=== PATIENT | female | born 1985 | race American Indian/Alaskan Native ===

== ENCOUNTER 2021-04-29 19:47 | Inpatient (IN) | payer OTHER ==
--- NOTE | 2021-04-29 21:04 | Event Note ---
ED Screening Note Date of service: 04/29/21 Time: 21:02 ED Screening Note: 35-year-old female patient with history of multiple C-sections presents to the emergency department with complaints of epigastric abdominal pain with associated nausea and vomiting starting 3 days ago. Patient has experienced 1 episode of nonbloody emesis in the last 24 hours. Last bowel movement was yesterday. No known sick contacts. No family history of gallbladder disease. Endorses occasional alcohol use. Denies fever, chills, diarrhea, constipation, rectal bleeding, urinary symptoms. General: Awake, appropriately interactive. Appears uncomfortable. Neck: Supple. Full range of motion intact. Cardiovascular: Normal peripheral perfusion. Pulmonary: No respiratory distress. Patient is speaking normally without use of accessory muscles. Abdomen: Soft, nondistended. Diffuse upper abdominal tenderness most pronounced along the epigastric area without guarding, rigidity, or rebound. Skin: No apparent rashes or lesions. Neurological: No facial asymmetry. Speech is clear. Follows commands. Patient is alert and oriented. Musculoskeletal: Moves all four extremities spontaneously with normal range of motion. Psych: Cooperative. Appropriate mood and affect. I have greeted and performed a focused rapid initial assessment of this patient. A comprehensive ED assessment and evaluation of the patient, analysis of all test results, and completion of the medical decision-making process will be conducted by additional ED providers. This initial assessment/diagnostic orders/clinical plan/treatment(s) is/are subject to change based on patients health status, clinical progression and re-assessment. Further treatment and workup at subsequent clinical provider's discretion. Patient/guardian urged not to elope from the ED as their condition may be serious if not clinically assessed and managed.
[2021-04-29 21:18] LABS: Basophils # (Auto) 0.1 K/mm3 (0.0-0.1); Basophils % (Auto) 0.8 % (0.0-1.8); Eosinophils % (Auto) 0.1 % (0.0-4.3); Hematocrit 40.8 % (30.3-42.9); Hemoglobin 13.6 gm/dl (10.1-14.3); Lymphocytes # (Auto) 1.8 K/mm3 (1.2-5.4); Lymphocytes % (Auto) 16.6 % (13.4-35.0); Mean Corpuscular HGB Conc 33 % (30-34); Mean Corpuscular Volume 85 fl (79-97); Monocytes # (Auto) 0.8 K/mm3 (0.0-0.8); Monocytes % (Auto) 7.8 % (0.0-7.3); Platelet Count 389 K/mm3 (140-440)
[2021-04-29 21:24] LABS: Bacteria,Urine 1+ /HPF (Negative); Bilirubin,Urine NEG (Negative); Blood,Urine NEG (Negative); Color,Urine Yellow (Yellow); Mucus,Urine 3+ /HPF
[2021-04-29 21:41] LABS: Alanine Aminotransferase 8 units/L (7-56); Albumin 4.6 g/dL (3.9-5); BUN/Creatinine Ratio 23; Blood Urea Nitrogen 18 mg/dL (7-17); Calcium 9.6 mg/dL (8.4-10.2); Hemolysis Index 9
[2021-04-29] MEDS ORDERED: ONDANSETRON 4 MG ODT TAB PO ONE (23:59)
[2021-04-29] MEDS ORDERED: MORPHINE 4 MG/1 ML INJ IV ONE (23:59)
[2021-04-29] MEDS ORDERED: SODIUM CHLORIDE 0.9% 1000 ML 1,000 ML IV ONE (23:59)
[2021-04-30] MEDS ORDERED: FAMOTIDINE 20 MG/2 ML INJ IV ONE (00:10)
--- NOTE | 2021-04-30 00:14 | Emergency Department Report ---
<NEMESIO SONI - Last Filed: 04/30/21 01:27> ED Abdominal Pain HPI - General Chief Complaint: Abdominal Pain Stated Complaint: STOMACH PAIN;VOMITING Time Seen by Provider: 04/29/21 21:34 Source: patient Mode of arrival: Ambulatory Limitations: No Limitations - History of Present Illness Initial Comments: 35-year-old -[place] female patient resents with complaints of nausea, vomiting, and upper abdominal pain x3 days. She denies any past medical history. Past surgical history includes 3 C-sections. She denies gerardo temesis/coffee-ground emesis, fever/chills/sweats, alcohol abuse, chest pain, shortness of breath, or cough. Patient rates her current pain as a 10/10 in severity and states it comes and goes. Pain worsens with oral intake. Vomiting only occurs with food and fluids. -: Sudden - Related Data Home Medications Medication Instructions Recorded Confirmed Last Taken Pnv,Calcium 72/Iron/Folic Acid 1 tab PO DAILY 12/14/14 12/14/14 12/13/14 [Pnv Plus Multivit Tab] Previous Rx's Medication Instructions Recorded Last Taken Type Docusate Sodium [Colace] 100 mg PO BID PRN #60 capsule 12/15/14 Unknown Rx Ibuprofen [Motrin] 800 mg PO Q8H PRN #60 tablet 12/15/14 Unknown Rx oxyCODONE /ACETAMINOPHEN [Percocet 1 tab PO Q6HR PRN #45 tablet 12/15/14 Unknown Rx 5/325] Dicyclomine [Bentyl] 20 mg PO QID PRN #40 tablet 04/30/21 Unknown Rx Famotidine [Pepcid] 20 mg PO BID 10 Days #20 tablet 04/30/21 Unknown Rx Ondansetron [Zofran Odt] 4 mg PO Q8HR PRN #30 tab.rapdis 04/30/21 Unknown Rx Allergies Allergy/AdvReac Type Severity Reaction Status Date / Time No Known Allergies Allergy Verified 08/09/14 09:14 ED Review of Systems Constitutional: denies: chills, fever, malaise ENT: denies: throat pain Respiratory: denies: cough, shortness of breath Cardiovascular: denies: chest pain Gastrointestinal: abdominal pain, nausea, vomiting. denies: diarrhea, constipation, hematemesis, melena, hematochezia Genitourinary: denies: urgency, dysuria, frequency, hematuria Musculoskeletal: denies: back pain Skin: denies: change in color Neurological: denies: headache Hematological/Lymphatic: denies: swollen glands ED Past Medical Hx - Past Medical History Previous Medical History?: No Hx Hypertension: No Hx Congestive Heart Failure: No Hx Diabetes: No Hx Deep Vein Thrombosis: No Hx Renal Disease: No Hx Sickle Cell Disease: No Hx Seizures: No Hx Asthma: No Hx COPD: No Hx HIV: No - Surgical History Past Surgical History?: Yes Additional Surgical History: , Tubes in ears - Social History Smoking Status: Never Smoker - Medications Home Medications: Home Medications Medication Instructions Recorded Confirmed Last Taken Type Pnv,Calcium 72/Iron/Folic Acid 1 tab PO DAILY 12/14/14 12/14/14 12/13/14 History [Pnv Plus Multivit Tab] Docusate Sodium [Colace] 100 mg PO BID PRN #60 capsule 12/15/14 Unknown Rx Ibuprofen [Motrin] 800 mg PO Q8H PRN #60 tablet 12/15/14 Unknown Rx oxyCODONE /ACETAMINOPHEN [Percocet 1 tab PO Q6HR PRN #45 tablet 12/15/14 Unknown Rx 5/325] Dicyclomine [Bentyl] 20 mg PO QID PRN #40 tablet 04/30/21 Unknown Rx Famotidine [Pepcid] 20 mg PO BID 10 Days #20 tablet 04/30/21 Unknown Rx Ondansetron [Zofran Odt] 4 mg PO Q8HR PRN #30 tab.rapdis 04/30/21 Unknown Rx ED Physical Exam - General Limitations: No Limitations General appearance: alert, in no apparent distress - Head Head exam: Present: atraumatic, normocephalic - Eye Eye exam: Present: normal appearance - Neck Neck exam: Present: normal inspection - Respiratory Respiratory exam: Present: normal lung sounds bilaterally, respiratory distress - Cardiovascular Cardiovascular Exam: Present: regular rate, normal rhythm - GI/Abdominal GI/Abdominal exam: Present: soft, tenderness (Epigastric/right upper quadrant), normal bowel sounds. Absent: distended, rigid - Expanded GI/Abdominal Exam Expanded GI/Abdominal exam: Present: Chavarria's sign - Neurological Exam Neurological exam: Present: alert, oriented X3 - Psychiatric Psychiatric exam: Present: normal affect, normal mood - Skin Skin exam: Present: warm, dry, intact, normal color. Absent: rash ED Medical Decision Making - Lab Data Result diagrams: 04/29/21 21:07 04/29/21 21:07 Lab Results 04/29/21 04/29/21 04/29/21 Range/Units 21:07 21:07 21:07 WBC 10.9 (4.5-11.0) K/mm3 RBC 4.80 (3.65-5.03) M/mm3 Hgb 13.6 (10.1-14.3) gm/dl Hct 40.8 (30.3-42.9) % MCV 85 (79-97) fl MCH 28 (28-32) pg MCHC 33 (30-34) % RDW 13.0 L (13.2-15.2) % Plt Count 389 (140-440) K/mm3 Lymph % (Auto) 16.6 (13.4-35.0) % [place] % (Auto) 7.8 H (0.0-7.3) % Eos % (Auto) 0.1 (0.0-4.3) % Baso % (Auto) 0.8 (0.0-1.8) % Lymph # (Auto) 1.8 (1.2-5.4) K/mm3 [place] # (Auto) 0.8 (0.0-0.8) K/mm3 Eos # (Auto) 0.0 (0.0-0.4) K/mm3 Baso # (Auto) 0.1 (0.0-0.1) K/mm3 Seg Neutrophils % 74.7 H (40.0-70.0) % Seg Neutrophils # 8.1 H (1.8-7.7) K/mm3 Sodium 136 L (137-145) mmol/L Potassium 3.7 (3.6-5.0) mmol/L Chloride 94.0 L (98-107) mmol/L Carbon Dioxide 29 (22-30) mmol/L Anion Gap 17 mmol/L BUN 18 H (7-17) mg/dL Creatinine 0.8 (0.6-1.2) mg/dL Estimated GFR > 60 ml/min BUN/Creatinine Ratio 23 % Glucose 125 H (65-100) mg/dL Calcium 9.6 (8.4-10.2) mg/dL Magnesium 1.90 (1.7-2.3) mg/dL Total Bilirubin 0.40 (0.1-1.2) mg/dL AST 10 (5-40) units/L ALT 8 (7-56) units/L Alkaline Phosphatase 71 (35-129) units/L Total Protein 7.6 (6.3-8.2) g/dL Albumin 4.6 (3.9-5) g/dL Albumin/Globulin Ratio 1.5 % Lipase 15 (13-60) units/L HCG, Qual Negative (Negative) Urine Color (Yellow) Urine Turbidity (Clear) Urine pH (5.0-7.0) Ur Specific [place] (1.003-1.030) Urine Protein (Negative) mg/dL Urine Glucose (UA) (Negative) mg/dL Urine Ketones (Negative) mg/dL Urine Blood (Negative) Urine Nitrite (Negative) Urine Bilirubin (Negative) Urine Urobilinogen (<2.0) mg/dL Ur Leukocyte Esterase (Negative) Urine WBC (Auto) (0.0-6.0) /HPF Urine RBC (Auto) (0.0-6.0) /HPF U Epithel Cells (Auto) (0-13.0) /HPF Urine Bacteria (Auto) (Negative) /HPF Urine Mucus /HPF 04/29/21 Range/Units Unknown WBC (4.5-11.0) K/mm3 RBC (3.65-5.03) M/mm3 Hgb (10.1-14.3) gm/dl Hct (30.3-42.9) % MCV (79-97) fl MCH (28-32) pg MCHC (30-34) % RDW (13.2-15.2) % Plt Count (140-440) K/mm3 Lymph % (Auto) (13.4-35.0) % [place] % (Auto) (0.0-7.3) % Eos % (Auto) (0.0-4.3) % Baso % (Auto) (0.0-1.8) % Lymph # (Auto) (1.2-5.4) K/mm3 [place] # (Auto) (0.0-0.8) K/mm3 Eos # (Auto) (0.0-0.4) K/mm3 Baso # (Auto) (0.0-0.1) K/mm3 Seg Neutrophils % (40.0-70.0) % Seg Neutrophils # (1.8-7.7) K/mm3 Sodium (137-145) mmol/L Potassium (3.6-5.0) mmol/L Chloride (98-107) mmol/L Carbon Dioxide (22-30) mmol/L Anion Gap mmol/L BUN (7-17) mg/dL Creatinine (0.6-1.2) mg/dL Estimated GFR ml/min BUN/Creatinine Ratio % Glucose (65-100) mg/dL Calcium (8.4-10.2) mg/dL Magnesium (1.7-2.3) mg/dL Total Bilirubin (0.1-1.2) mg/dL AST (5-40) units/L ALT (7-56) units/L Alkaline Phosphatase (35-129) units/L Total Protein (6.3-8.2) g/dL Albumin (3.9-5) g/dL Albumin/Globulin Ratio % Lipase (13-60) units/L HCG, Qual (Negative) Urine Color Yellow (Yellow) Urine Turbidity Clear (Clear) Urine pH 5.0 (5.0-7.0) Ur Specific [place] 1.031 H (1.003-1.030) Urine Protein 100 mg/dl (Negative) mg/dL Urine Glucose (UA) Neg (Negative) mg/dL Urine Ketones 80 (Negative) mg/dL Urine Blood Neg (Negative) Urine Nitrite Neg (Negative) Urine Bilirubin Neg (Negative) Urine Urobilinogen 2.0 (<2.0) mg/dL Ur Leukocyte Esterase Neg (Negative) Urine WBC (Auto) 2.0 (0.0-6.0) /HPF Urine RBC (Auto) 5.0 (0.0-6.0) /HPF U Epithel Cells (Auto) 5.0 (0-13.0) /HPF Urine Bacteria (Auto) 1+ (Negative) /HPF Urine Mucus 3+ /HPF - Radiology Data Radiology results: report reviewed ULTRASOUND ABDOMEN, LIMITED (RIGHT UPPER QUADRANT) INDICATION: acute pain. COMPARISON: None available. FINDINGS: Pancreas: Visualized portion shows no significant abnormality. Liver: Increased echogenicity of the liver Gallbladder: Normal. Bile ducts: Normal. Common Bile Duct measures 3.9 mm. Free fluid: None. Additional Findings: No evidence of ventral wall hernia. Multiple fluid-filled loops of bowel are noted IMPRESSION: 1. Hepatic steatosis 2. Questionable distention of the gastrointestinal tract, recommend KUB for further evaluation - Medical Decision Making 35-year-old -[place] female patient resents with complaints of nausea, vomiting, and upper abdominal pain x3 days. She denies any past medical history. Past surgical history includes 3 C-sections. She denies hematemesis/coffee-ground emesis, fever/chills/sweats, alcohol abuse, chest pain, shortness of breath, or cough. Patient rates her current pain as a 10/10 in severity and states it comes and goes. Pain worsens with oral intake. Vomiting only occurs with food and fluids. ED Disposition Clinical Impression: Nausea and vomiting in adult patient, Small bowel obstruction Abdominal pain Qualifiers: Abdominal location: generalized Qualified Code(s): R10.84 - Generalized abdominal pain Disposition: OP ADMIT IP TO THIS HOSP Condition: Stable Instructions: Abdominal Pain (ED) Prescriptions: Dicyclomine [Bentyl] 20 mg PO QID PRN #40 tablet PRN Reason: abdominal pain/cramping Famotidine [Pepcid] 20 mg PO BID 10 Days #20 tablet Ondansetron [Zofran Odt] 4 mg PO Q8HR PRN #30 tab.rapdis PRN Reason: Nausea Referrals: [facility] [Provider Group] - 2-3 Days Forms: Work/School Release Form(ED) Print Language: YORUBA <ALEX DALY - Last Filed: 04/30/21 03:06> ED Review of Systems ROS: Stated complaint: STOMACH PAIN;VOMITING Other details as noted in HPI ED Course Vital Signs 04/29/21 04/29/21 20:01 20:38 Temperature 99.4 F Pulse Rate 95 H Respiratory 18 Rate Blood Pressure 152/134 Blood Pressure 125/84 [Right] O2 Sat by Pulse 96 Oximetry - Reevaluation(s) Reevaluation #1: 04/30/21 02:47 I paged and discussed the patient's case with the General Surgeon concrete worker Dr. Palomares who advised that an NG tube be placed on the patient to start decompression, the patient be kept n.p.o. and also given normal saline IV fluids and pain medication as needed. Dr. Palomares also advised that the patient be admitted to the hospital by the hospitalist physician on-call and that she shall consult on the patient this morning. 04/30/21 02:59 ED Medical Decision Making - Lab Data Result diagrams: 04/29/21 21:07 04/29/21 21:07 - Radiology Data [facility] [address] [place] [address] Cat Scan Report Signed Patient: PAYTON GALAVIZ MR#: [id number] : 1985 Acct:[id number] Age/Sex: 35 / F ADM Date: 04/29/21 Loc: ED Attending Dr: Ordering Physician: NEMESIO SONI Date of Service: 04/30/21 Procedure(s): CT abdomen pelvis w con Accession Number(s): [id number] cc: NEMESIO SONI CT ABDOMEN AND PELVIS WITH CONTRAST INDICATION / CLINICAL INFORMATION: MAIN. TECHNIQUE: Axial CT images were obtained through the abdomen and pelvis after small bowel obstruction 100 cc Omnipaque 300 milligrams percent IV contrast. All CT scans at this location are performed using CT dose reduction for [employer] by means of automated exposure control. COMPARISON: None available. FINDINGS: LOWER CHEST: No significant abnormality. LIVER: No significant abnormality. GALLBLADDER: No significant abnormality. BILE DUCTS: No significant abnormality. PANCREAS: No significant abnormality. SPLEEN: No significant abnormality. ADRENALS: No significant abnormality. RIGHT KIDNEY and URETER: No significant abnormality. LEFT KIDNEY and URETER: No significant abnormality. STOMACH and SMALL BOWEL: Multiple loops of dilated small bowel predominantly proximal and mid portions COLON: No significant abnormality. APPENDIX: No significant abnormality. PERITONEUM: Significant amount of free fluid dependent portion of the pelvis. No free air. No fluid collection. LYMPH NODES: No significant adenopathy. AORTA and ARTERIES: No significant abnormality. IVC and VEINS: No significant abnormality. URINARY BLADDER: No significant abnormality. REPRODUCTIVE ORGANS: No significant abnormality. ADDITIONAL FINDINGS: None. SKELETAL SYSTEM: No significant abnormality. IMPRESSION: 1. Abnormal intestinal gas pattern consistent with a small bowel obstruction 2. Significant amount of free fluid dependent portion of the pelvis Signer Name: Mariano Benson MD Signed: 04/30/2021 1:58 AM Workstation Name: [id number] Transcribed By: FAYE Dictated By: Mariano Benson MD Electronically Authenticated By: Mariano Benson MD Signed Date/Time: 04/30/21157 DD/ 4 TD/TT: - Medical Decision Making I seen care of the patient from Ms. Nemesio Soni PA-C at shift change at 0200 hrs. please review the HPI, ROS and physical exams for more details of the patient's complaint. All lab test results were reviewed and are all nonactionable. Gallbladder ultrasound showed no acute abnormality except hepatic steatosis. Abdomen pelvis CT scan with contrast showed abnormal intestinal gas pattern consistent with a small bowel obstruction. It also showed significant amount of free fluid dependent portion of the pelvis. These findings were discussed with the general surgeon on-call Dr. Palomares who advised that the patient be kept n.p.o., and that an NG tube be placed and that the patient be treated for pain and given normal saline IV fluids and that the hospitalist physician on-call admit the patient to the hospital and she shall consult on the patient in the morning. An NG tube was therefore placed on the patient and confirmed the placement correctly with a KUB x-ray. I therefore paged and discussed this findings also with the hospitalist physician Dr. Dominguez who admitted the patient to the hospital. - Differential Diagnosis Dehydration; SBO; Appendicitis; Colitis; Gastroenteritis; GERD; UTI Critical Care Time: Yes Critical care time in (mins) excluding proc time.: 35 Critical care attestation.: If time is entered above; I have spent that time in minutes in the direct care of this critically ill patient, excluding procedure time. Time spent on patient education, documentation, Lab test results and imaging report review and physician consults Critical Care Time: If time is entered above; I have spent that time in minutes in the direct care of this critically ill patient, excluding procedure time. Time spent on patient education, documentation, Lab test results and imaging report review and physician consults ED Disposition Is pt being admited?: Yes Does the pt Need Aspirin: No Time of Disposition: 02:46
--- NOTE | 2021-04-30 00:50 | Ultrasound Report ---
ULTRASOUND ABDOMEN, LIMITED (RIGHT UPPER QUADRANT) INDICATION: acute pain. COMPARISON: None available. FINDINGS: Pancreas: Visualized portion shows no significant abnormality. Liver: Increased echogenicity of the liver Gallbladder: Normal. Bile ducts: Normal. Common Bile Duct measures 3.9 mm. Free fluid: None. Additional Findings: No evidence of ventral wall hernia. Multiple fluid-filled loops of bowel are not ed IMPRESSION: 1. Hepatic steatosis 2. Questionable distention of the gastrointestinal tract, recommend KUB for further evaluation Signer Name: Mariano Benson MD Signed: 04/30/2021 12:46 AM Workstation Name: [id number]
--- NOTE | 2021-04-30 02:02 | Cat Scan Report ---
CT ABDOMEN AND PELVIS WITH CONTRAST INDICATION / CLINICAL INFORMATION: MAIN. TECHNIQUE: Axial CT images were obtained through the abdomen and pelvis after small bowel obstruction 100 cc Omn ipaque 300 milligrams percent IV contrast. All CT scans at this location are performed using CT dose reduction for [employer] by means of automated exposure control. COMPARISON: None available. FINDINGS: LOWER CHEST: No significant abnormality. LIVER: No significant abnormality. GALLBLADDER: No significant abnormality. BILE DUCTS: No significant abnormality. PANCREAS: No significant abnormality. SPLEEN: No significant abnormality. ADRENALS: No significant abnormality. RIGHT KIDNEY and URETER: No significant abnormality. LEFT KIDNEY and URETER: No significant abnormality. STOMACH and SMALL BOWEL: Multiple loops of dilated small bowel predominantly proximal and mid portion s COLON: No significant abnormality. APPENDIX: No significant abnormality. PERITONEUM: Significant amount of free fluid dependent portion of the pelvis. No free air. No fluid c ollection. LYMPH NODES: No significant adenopathy. AORTA and ARTERIES: No significant abnormality. IVC and VEINS: No significant abnormality. URINARY BLADDER: No significant abnormality. REPRODUCTIVE ORGANS: No significant abnormality. ADDITIONAL FINDINGS: None. SKELETAL SYSTEM: No significant abnormality. IMPRESSION: 1. Abnormal intestinal gas pattern consistent with a small bowel obstruction 2. Significant amount of free fluid dependent portion of the pelvis Signer Name: Mariano Benson MD Signed: 04/30/2021 1:58 AM Workstation Name: [id number]
[2021-04-30] MEDS ORDERED: ONDANSETRON 4 MG/2 ML INJ IV PRN ×2 (03:07→03:46)
[2021-04-30] MEDS ORDERED: MORPHINE 2 MG/1 ML INJ IV PRN (03:07)
[2021-04-30] MEDS ORDERED: ACETAMINOPHEN 325 MG TAB PO PRN ×2 (03:07→03:46)
[2021-04-30] MEDS ORDERED: SODIUM CHLORIDE 0.9% 1000 ML 1,000 ML IV SCH (03:15)
[2021-04-30] MEDS ORDERED: ALBUTEROL 2.5 MG/3 ML NEBU IH PRN (03:46)
[2021-04-30] MEDS ORDERED: hydrALAZINE 20 MG/1 ML INJ IV PRN (03:47)
--- NOTE | 2021-04-30 03:51 | XRay Report ---
ABDOMEN 1 VIEW(S) INDICATION: NG tube placement COMPARISON: None available. FINDINGS: Nasogastric tube has tip in stomach Bowel gas pattern: Within normal limits. No dilated loops of large or small bowel. Free air: None. Calcified gallstones: None seen. Calcified urinary tract calculi: None seen. Additional Findings: None. Skeletal structures: No acute abnormality. IMPRESSION: 1. No acute findings. Signer Name: Mariano Benson MD Signed: 04/30/2021 3:47 AM Workstation Name: [id number]
--- NOTE | 2021-04-30 03:53 | History and Physical Report ---
History of Present Illness Date of examination: 04/30/21 Date of admission: 04/30/21 03:08 Chief complaint: Abdominal pain Nausea vomiting History of present illness: 35-year-old -[place] female with no significant past medical history was brought to the hospital because of upper abdominal pain acid with nausea vomiting for the last 3 days. past surgical history includes 3 C-sections. She denies hematemesis/coffee-ground emesis, fever/chills/sweats, alcohol abuse, chest pain, shortness of breath, or cough. Patient rates her current pain as a 10/10 in severity and states it comes and goes. Pain worsens with oral intake. Vomiting only occurs with food and fluids. In the emergency room patient had a CT scan of the abdomen and pelvis showed small bowel obstruction Past History Past Medical History: other () Past Surgical History: (Tubes in the ears) Medications and Allergies Allergies Allergy/AdvReac Type Severity Reaction Status Date / Time No Known Allergies Allergy Verified 08/09/14 09:14 Home Medications Medication Instructions Recorded Confirmed Last Taken Type Pnv,Calcium 72/Iron/Folic Acid 1 tab PO DAILY 12/14/14 12/14/14 12/13/14 History [Pnv Plus Multivit Tab] Docusate Sodium [Colace] 100 mg PO BID PRN #60 capsule 12/15/14 Unknown Rx Ibuprofen [Motrin] 800 mg PO Q8H PRN #60 tablet 12/15/14 Unknown Rx oxyCODONE /ACETAMINOPHEN [Percocet 1 tab PO Q6HR PRN #45 tablet 12/15/14 Unknown Rx 5/325] Dicyclomine [Bentyl] 20 mg PO QID PRN #40 tablet 04/30/21 Unknown Rx Famotidine [Pepcid] 20 mg PO BID 10 Days #20 tablet 04/30/21 Unknown Rx Ondansetron [Zofran Odt] 4 mg PO Q8HR PRN #30 tab.rapdis 04/30/21 Unknown Rx Active Meds: Active Medications Acetaminophen (Acetaminophen 325 Mg Tab) 650 mg PO Q4H PRN PRN Reason: Pain MILD(1-3)/Fever >100.5/LUCERO Acetaminophen (Acetaminophen 325 Mg Tab) 650 mg PO Q4H PRN PRN Reason: Pain MILD(1-3)/Fever >100.5/LUCERO Albuterol (Albuterol 2.5 Mg/3 Ml Nebu) 2.5 mg IH Q4HRT PRN PRN Reason: Shortness Of Breath Famotidine (Famotidine 20 Mg/2 Ml Inj) 20 mg IV BID PATO Heparin Sodium (Porcine) (Heparin 5,000 Unit/1 Ml Vial) 5,000 unit SUB-Q Q8HR PATO Hydralazine HCl (Hydralazine 20 Mg/1 Ml Inj) 10 mg IV Q6H PRN PRN Reason: htn Sodium Chloride (Nacl 0.9% 1000 Ml) 1,000 mls @ 125 mls/hr IV DIRECT PATO Dextrose/Sodium Chloride (D5/0.45ns) 1,000 mls @ 100 mls/hr IV DIRECT PATO Morphine Sulfate (Morphine 2 Mg/1 Ml Inj) 4 mg IV Q4H PRN PRN Reason: Pain, Moderate (4-6) Morphine Sulfate (Morphine 2 Mg/1 Ml Inj) 2 mg IV Q4H PRN PRN Reason: Pain, Moderate (4-6) Ondansetron HCl (Ondansetron 4 Mg/2 Ml Inj) 4 mg IV Q8H PRN PRN Reason: Nausea And Vomiting Ondansetron HCl (Ondansetron 4 Mg/2 Ml Inj) 4 mg IV Q8H PRN PRN Reason: Nausea And Vomiting Sodium Chloride (Sodium Chloride 0.9% 10 Ml Flush Syringe) 10 ml IV BID PATO Sodium Chloride (Sodium Chloride 0.9% 10 Ml Flush Syringe) 10 ml IV PRN PRN PRN Reason: LINE FLUSH Sodium Chloride (Sodium Chloride 0.9% 10 Ml Flush Syringe) 10 ml IV BID PATO Sodium Chloride (Sodium Chloride 0.9% 10 Ml Flush Syringe) 10 ml IV PRN PRN PRN Reason: LINE FLUSH Review of Systems Gastrointestinal: abdominal pain, nausea, vomiting Exam - Constitutional Vitals: Temp Pulse Resp BP Pulse Ox 99.4 F 95 H 18 125/84 96 04/29/21 20:01 04/29/21 20:01 04/29/21 20:01 04/29/21 20:38 04/29/21 20:01 General appearance: Present: no acute distress, well-nourished - EENT Eyes: Present: PERRL ENT: hearing intact, clear oral mucosa - Neck Neck: Present: supple, normal ROM - Respiratory Respiratory effort: normal Respiratory: bilateral: CTA - Cardiovascular Heart Sounds: Present: S1 & S2. Absent: rub, click - Extremities Extremities: pulses symmetrical, No edema Peripheral Pulses: within normal limits - Abdominal General gastrointestinal: Present: soft, tender, non-distended, normal bowel sounds, other (Tenderness in the epigastrium and right upper quadrant) Female genitourinary: Present: normal - Integumentary Integumentary: Present: clear, warm, dry - Musculoskeletal Musculoskeletal: gait normal, strength equal bilaterally - Psychiatric Psychiatric: appropriate mood/affect, intact judgment & insight - Neurologic Neurologic: CNII-XII intact, moves all extremities Results - Labs CBC & Chem 7: 04/29/21 21:07 04/29/21 21: Labs: Laboratory Last Values WBC 10.9 K/mm3 (4.5-11.0) 04/29/21 21: RBC 4.80 M/mm3 (3.65-5.03) 04/29/21 21: Hgb 13.6 gm/dl (10.1-14.3) 04/29/21 21: Hct 40.8 % (30.3-42.9) 04/29/21 21:07 MCV 85 fl (79-97) 04/29/21 21: MCH 28 pg (28-32) 04/29/21 21:07 MCHC 33 % (30-34) 04/29/21 21:07 RDW 13.0 % (13.2-15.2) L 04/29/21 21: Plt Count 389 K/mm3 (140-440) 04/29/21 21:07 Lymph % (Auto) 16.6 % (13.4-35.0) 04/29/21 21:07 [place] % (Auto) 7.8 % (0.0-7.3) H 04/29/21 21:07 Eos % (Auto) 0.1 % (0.0-4.3) 04/29/21 21:07 Baso % (Auto) 0.8 % (0.0-1.8) 04/29/21 21: Lymph # (Auto) 1.8 K/mm3 (1.2-5.4) 04/29/21 21:07 [place] # (Auto) 0.8 K/mm3 (0.0-0.8) 04/29/21 21:07 Eos # (Auto) 0.0 K/mm3 (0.0-0.4) 04/29/21 21:07 Baso # (Auto) 0.1 K/mm3 (0.0-0.1) 04/29/21 21:07 Seg Neutrophils % 74.7 % (40.0-70.0) H 04/29/21 21:07 Seg Neutrophils # 8.1 K/mm3 (1.8-7.7) H 04/29/21 21:07 Sodium 136 mmol/L (137-145) L 04/29/21 21:07 Potassium 3.7 mmol/L (3.6-5.0) 04/29/21 21:07 Chloride 94.0 mmol/L (98-107) L 04/29/21 21:07 Carbon Dioxide 29 mmol/L (22-30) 04/29/21 21:07 Anion Gap 17 mmol/L 04/29/21 21:07 BUN 18 mg/dL (7-17) H 04/29/21 21:07 Creatinine 0.8 mg/dL (0.6-1.2) 04/29/21 21:07 Estimated GFR > 60 ml/min 04/29/21 21:07 BUN/Creatinine Ratio 23 % 04/29/21 21:07 Glucose 125 mg/dL (65-100) H 04/29/21 21:07 Calcium 9.6 mg/dL (8.4-10.2) 04/29/21 21:07 Magnesium 1.90 mg/dL (1.7-2.3) 04/29/21 21:07 Total Bilirubin 0.40 mg/dL (0.1-1.2) 04/29/21 21:07 AST 10 units/L (5-40) 04/29/21 21:07 ALT 8 units/L (7-56) 04/29/21 21:07 Alkaline Phosphatase 71 units/L (35-129) 04/29/21 21:07 Total Protein 7.6 g/dL (6.3-8.2) 04/29/21 21:07 Albumin 4.6 g/dL (3.9-5) 04/29/21 21:07 Albumin/Globulin Ratio 1.5 % 04/29/21 21:07 Lipase 15 units/L (13-60) 04/29/21 21:07 HCG, Qual Negative (Negative) 04/29/21 21:07 Urine Color Yellow (Yellow) 04/29/21 Unknown Urine Turbidity Clear (Clear) 04/29/21 Unknown Urine pH 5.0 (5.0-7.0) 04/29/21 Unknown Ur Specific [place] 1.031 (1.003-1.030) H 04/29/21 Unknown Urine Protein 100 mg/dl mg/dL (Negative) 04/29/21 Unknown Urine Glucose (UA) Neg mg/dL (Negative) 04/29/21 Unknown Urine Ketones 80 mg/dL (Negative) 04/29/21 Unknown Urine Blood Neg (Negative) 04/29/21 Unknown Urine Nitrite Neg (Negative) 04/29/21 Unknown Urine Bilirubin Neg (Negative) 04/29/21 Unknown Urine Urobilinogen 2.0 mg/dL (<2.0) 04/29/21 Unknown Ur Leukocyte Esterase Neg (Negative) 04/29/21 Unknown Urine WBC (Auto) 2.0 /HPF (0.0-6.0) 04/29/21 Unknown Urine RBC (Auto) 5.0 /HPF (0.0-6.0) 04/29/21 Unknown U Epithel Cells (Auto) 5.0 /HPF (0-13.0) 04/29/21 Unknown Urine Bacteria (Auto) 1+ /HPF (Negative) 04/29/21 Unknown Urine Mucus 3+ /HPF 04/29/21 Unknown - Imaging and Cardiology CT scan - abdomen: report reviewed Assessment and Plan VTE prophylaxis?: Chemical Plan of care discussed with patient/family: Yes - Patient Problems (1) Small bowel obstruction Current Visit: Yes Status: Acute Plan to address problem: Admit the patient to the medical floor. N.p.o. NG suction. D5 half-normal saline at the rate of 100 cc/h. Pepcid 20 mg IV every 12 hours. Zofran 4 mg IV every 6 hours as needed. Morphine 2 mg IV every 4 hours as needed. Will consult surgery for evaluation and treatment (2) Nausea and vomiting in adult patient Current Visit: Yes Status: Acute Plan to address problem: N.p.o. NG suction. D5 half-normal saline at the rate of 100 cc/h. Pepcid 20 mg IV every 12 hours. Zofran 4 mg IV every 6 hours as needed. (3) Abdominal pain Current Visit: Yes Status: Acute Qualifiers: Abdominal location: generalized Qualified Code(s): R10.84 - Generalized abdominal pain Plan to address problem: Pepcid 20 mg IV every 12 hours. Zofran 4 mg IV every 6 hours as needed. Morphine 2 mg IV every 4 hours as needed. Will consult surgery for evaluation and treatment (4) deliv due to previous difficult deliv, deliv, curr hospitaliz Current Visit: No Status: Acute Plan to address problem: Stable. We will continue the home medication (5) DVT prophylaxis Current Visit: Yes Status: Acute Plan to address problem: Heparin 5000 units subcu every 8 hours for DVT prophylaxis. Pepcid 20 mg IV every 12 hours for GI prophylaxis. Patient is a full code
[2021-04-30] MEDS: D5W/0.45% NACL 1,000 ML IV SCH ×2 (06:24→15:34)
[2021-04-30] MEDS: HEPARIN 5,000 UNIT/1 ML VIAL SUB-Q SCH ×3 (06:46→22:32)
[2021-04-30] MEDS: FAMOTIDINE 20 MG/2 ML INJ IV SCH ×2 (09:27→22:32)
[2021-04-30] MEDS: MORPHINE 2 MG/1 ML INJ IV PRN (09:32)
--- NOTE | 2021-04-30 11:08 | Consultation ---
History of Present Illness Consult date: 04/30/21 Reason for consult: abdominal pain Chief complaint: abdominal pain - History of present illness History of present illness: 35-year-old female with a past surgical history of x3 who presented to the emergency room with complaints of epigastric abdominal pain. The pain is crampy in nature and radiates across the upper abdomen. The pain started 3 days ago and gradually got worse. The pain is intermittent. The patient has never had anything like this before. She states she had nonbilious/nonbloody bloody emesis. She denies fevers or chills. No chest pain or shortness of breath. Patient states that as soon as the NG tube was placed, she got relief from her abdominal pain. She feels slightly better today. Her last bowel movement was on Thursday and was hard with small amounts of stool. Her last normal bowel movement was on Thursday. She is not passing any flatus. Past History Past Medical History: other () Past Surgical History: (Tubes in the ears) Medications and Allergies Allergies Allergy/AdvReac Type Severity Reaction Status Date / Time No Known Allergies Allergy Verified 08/09/14 09:14 Home Medications Medication Instructions Recorded Confirmed Last Taken Type No Known Home Medications [No 04/30/21 04/30/21 Unknown History Reported Home Medications] Active Meds: Active Medications Acetaminophen (Acetaminophen 325 Mg Tab) 650 mg PO Q4H PRN PRN Reason: Pain MILD(1-3)/Fever >100.5/LUCERO Albuterol (Albuterol 2.5 Mg/3 Ml Nebu) 2.5 mg IH Q4HRT PRN PRN Reason: Shortness Of Breath Famotidine (Famotidine 20 Mg/2 Ml Inj) 20 mg IV BID PATO Last Admin: 04/30/21 09:27 Dose: 20 mg Documented by: Heparin Sodium (Porcine) (Heparin 5,000 Unit/1 Ml Vial) 5,000 unit SUB-Q Q8HR PATO Last Admin: 04/30/21 06:46 Dose: 5,000 unit Documented by: Hydralazine HCl (Hydralazine 20 Mg/1 Ml Inj) 10 mg IV Q6H PRN PRN Reason: htn Dextrose/Sodium Chloride (D5/0.45ns) 1,000 mls @ 100 mls/hr IV DIRECT PATO Last Admin: 04/30/21 06:24 Dose: 100 mls/hr Documented by: Morphine Sulfate (Morphine 2 Mg/1 Ml Inj) 2 mg IV Q4H PRN PRN Reason: Pain, Moderate (4-6) Last Admin: 04/30/21 09:32 Dose: 2 mg Documented by: Ondansetron HCl (Ondansetron 4 Mg/2 Ml Inj) 4 mg IV Q8H PRN PRN Reason: Nausea And Vomiting Sodium Chloride (Sodium Chloride 0.9% 10 Ml Flush Syringe) 10 ml IV BID [facility] Last Admin: 04/30/21 09:27 Dose: 10 ml Documented by: Sodium Chloride (Sodium Chloride 0.9% 10 Ml Flush Syringe) 10 ml IV PRN PRN PRN Reason: LINE FLUSH Review of Systems All systems: negative (10 point ROS performed and negative except for that listed in HPI) Exam Vital Signs Temp Pulse Resp BP Pulse Ox 99.4 F 95 H 18 152/134 96 04/29/21 20:01 04/29/21 20:01 04/29/21 20:01 04/29/21 20:01 04/29/21 20:01 Narrative exam: Gen.: Awake, alert, oriented x3. No apparent distress ENT: NG tube with thick brown drainage. Trachea midline. No lymphadenopathy. No scleral icterus or conjunctival pallor CV: S1, S2 present Respiratory: No audible wheezes Abdomen: Soft, mildly distended with tenderness to palpation in the epigastrium and upper quadrants. No rebound, rigidity, guarding Extremities: No clubbing, cyanosis, edema Results - Labs 04/29/21 21:07 04/29/21 21:07 Abnormal lab results 04/29/21 04/29/21 04/29/21 Range/Units 21:07 21:07 Unknown RDW 13.0 L (13.2-15.2) % [place] % (Auto) 7.8 H (0.0-7.3) % Seg Neutrophils % 74.7 H (40.0-70.0) % Seg Neutrophils # 8.1 H (1.8-7.7) K/mm3 Sodium 136 L (137-145) mmol/L Chloride 94.0 L (98-107) mmol/L BUN 18 H (7-17) mg/dL Glucose 125 H (65-100) mg/dL Ur Specific [place] 1.031 H (1.003-1.030) Diabetes panel 04/29/21 Range/Units 21:07 Sodium 136 L (137-145) mmol/L Potassium 3.7 (3.6-5.0) mmol/L Chloride 94.0 L (98-107) mmol/L Carbon Dioxide 29 (22-30) mmol/L BUN 18 H (7-17) mg/dL Creatinine 0.8 (0.6-1.2) mg/dL Glucose 125 H (65-100) mg/dL Calcium 9.6 (8.4-10.2) mg/dL AST 10 (5-40) units/L ALT 8 (7-56) units/L Alkaline Phosphatase 71 (35-129) units/L Total Protein 7.6 (6.3-8.2) g/dL Albumin 4.6 (3.9-5) g/dL Calcium panel 04/29/21 Range/Units 21:07 Calcium 9.6 (8.4-10.2) mg/dL Albumin 4.6 (3.9-5) g/dL Pituitary panel 04/29/21 Range/Units 21:07 Sodium 136 L (137-145) mmol/L Potassium 3.7 (3.6-5.0) mmol/L Chloride 94.0 L (98-107) mmol/L Carbon Dioxide 29 (22-30) mmol/L BUN 18 H (7-17) mg/dL Creatinine 0.8 (0.6-1.2) mg/dL Glucose 125 H (65-100) mg/dL Calcium 9.6 (8.4-10.2) mg/dL Adrenal panel 04/29/21 Range/Units 21:07 Sodium 136 L (137-145) mmol/L Potassium 3.7 (3.6-5.0) mmol/L Chloride 94.0 L (98-107) mmol/L Carbon Dioxide 29 (22-30) mmol/L BUN 18 H (7-17) mg/dL Creatinine 0.8 (0.6-1.2) mg/dL Glucose 125 H (65-100) mg/dL Calcium 9.6 (8.4-10.2) mg/dL Total Bilirubin 0.40 (0.1-1.2) mg/dL AST 10 (5-40) units/L ALT 8 (7-56) units/L Alkaline Phosphatase 71 (35-129) units/L Total Protein 7.6 (6.3-8.2) g/dL Albumin 4.6 (3.9-5) g/dL - Imaging Abdominal x-ray: report reviewed, image reviewed CT scan - abdomen: report reviewed, image reviewed CT scan - pelvis: report reviewed, image reviewed US - abdomen: report reviewed, image reviewed Assessment and Plan 35 yo F with SBO likely secondary to prior abdominal surgery (csection) Patient stable. Nontoxic. Plan: 1. NPO 2. IVF 3. NGT to LIWS 4. prn pain and nausea control 5. DVT ppx 6. GI ppx 7. May have ice for comfort 8. BMP daily 9. Obs series in am 10. Discussed results of CT scan with the patient. Explained the process of small bowel obstruction secondary to adhesions from previous surgery. Explained to the patient that if she does not improve with NG tube and bowel rest that she may require surgical intervention. She understands. Thank you for this consultation. Please call with any questions or concerns. Evaluation and treatment of this patient was during the time of the national and state emergency arising from COVID19 coronavirus pandemic. Treatment and procedures performed meet the current and available best practice and guidelines for patient during the COVID pandemic.
[2021-04-30] MEDS ORDERED: PHENOL 1.4% 177 ML BOTTLE MM PRN (13:27)
[2021-05-01] MEDS: D5W/0.45% NACL 1,000 ML IV SCH (02:04)
[2021-05-01] MEDS: HEPARIN 5,000 UNIT/1 ML VIAL SUB-Q SCH ×3 (05:37→21:26)
[2021-05-01 05:48] LABS: Basophils # (Auto) 0.1 K/mm3 (0.0-0.1); Basophils % (Auto) 1.3 % (0.0-1.8); Eosinophils # (Auto) 0.1 K/mm3 (0.0-0.4); Eosinophils % (Auto) 1.4 % (0.0-4.3); Hematocrit 34.6 % (30.3-42.9); Hemoglobin 11.6 gm/dl (10.1-14.3); Lymphocytes # (Auto) 2.2 K/mm3 (1.2-5.4); Lymphocytes % (Auto) 31.3 % (13.4-35.0); Mean Corpuscular HGB Conc 34 % (30-34); Mean Corpuscular Volume 86 fl (79-97); Monocytes # (Auto) 0.8 K/mm3 (0.0-0.8); Platelet Count 306 K/mm3 (140-440); Red Blood Count 4.01 M/mm3 (3.65-5.03); Red Cell Distribution Width 13.1 % (13.2-15.2)
[2021-05-01 06:05] LABS: Blood Urea Nitrogen 13 mg/dL (7-17); Calcium 8.2 mg/dL (8.4-10.2); Hemolysis Index 3
[2021-05-01 06:07] LABS: BUN/Creatinine Ratio 22
[2021-05-01] MEDS ORDERED: D5NS W/KCL 20 MEQ 20 MEQ/1,000 ML BAG IV SCH (08:00)
--- NOTE | 2021-05-01 08:52 | XRay Report ---
ABDOMEN 3 VIEW(S) INDICATION / CLINICAL INFORMATION: sbo. COMPARISON: Yesterday FINDINGS: TUBES / LINES: Tip of an NG tube is seen in the mid stomach once again. BOWEL GAS PATTERN: A few mildly gas filled and distended mid abdominal small bowel loops are again no matt although there is air distally in the colon. FREE AIR / EXTRALUMINAL GAS: None seen. ADDITIONAL FINDINGS: No significant additional findings. IMPRESSION: 1. Findings as outlined above could be seen with an ileus or partial obstruction. Signer Name: Heber Peterson MD Signed: 05/01/2021 8:47 AM Workstation Name: [id number]
[2021-05-01] MEDS: POTASSIUM CHLORIDE 10 MEQ 10 MEQ/100 ML BAG IV SCH ×4 (10:19→15:10)
[2021-05-01] MEDS: MORPHINE 2 MG/1 ML INJ IV PRN (12:33)
--- NOTE | 2021-05-01 13:39 | Progress Note ---
Assessment and Plan 35 yo F with SBO likely secondary to prior abdominal surgery (csection) Patient stable. Small bowel obstruction is clinically resolving. Obstruction series today shows improvement. Plan: 1. NGT clamp trial until 1500 -> if no n/v, abd pain and output<100cc upon reconnecting - NGT may be removed 2. Start CLD if NGT removed after clamp trial 3. OOB/ambulate 4. prn pain and nausea control 5. continue IVF 6. DVT and GI ppx Discussed plan with patient and her RN. Thank you, please call with any questions or concerns. Evaluation and treatment of this patient was during the time of the national and state emergency arising from COVID19 coronavirus pandemic. Treatment and procedures performed meet the current and available best practice and guidelines for patient during the COVID pandemic. Subjective Date of service: 05/01/21 Narrative: Patient seen and examined. Her main complaint is the throat pain coming from the NG tube. She states her abdomen feels much better and her pain is completely resolved. She is passing lots of flatus and had bowel movements. Objective Vital Signs - 12hr 05/01/21 05/01/21 03:42 07:14 Temperature 98.9 F 98.7 F Pulse Rate 88 85 Respiratory 16 18 Rate Blood Pressure 128/73 127/78 O2 Sat by Pulse 97 98 Oximetry - General physical appearance Narrative Exam: Gen.: Awake, alert, oriented x3. No apparent distress ENT: NG tube, scant clear drainage. Trachea midline. No lymphadenopathy. No scleral icterus or conjunctival pallor CV: S1, S2 present Respiratory: No audible wheezes Abdomen: Soft, nondistended, nontender. No rebound, rigidity, guarding Extremities: No clubbing, cyanosis, edema - Labs 05/01/21 04:49 05/01/21 04:49 Diabetes panel 05/01/21 Range/Units 04:49 Sodium 139 (137-145) mmol/L Potassium 3.1 L (3.6-5.0) mmol/L Chloride 103.4 (98-107) mmol/L Carbon Dioxide 26 (22-30) mmol/L BUN 13 (7-17) mg/dL Creatinine 0.6 (0.6-1.2) mg/dL Glucose 125 H (65-100) mg/dL Calcium 8.2 L (8.4-10.2) mg/dL Calcium panel 05/01/21 Range/Units 04:49 Calcium 8.2 L (8.4-10.2) mg/dL Pituitary panel 05/01/21 Range/Units 04:49 Sodium 139 (137-145) mmol/L Potassium 3.1 L (3.6-5.0) mmol/L Chloride 103.4 (98-107) mmol/L Carbon Dioxide 26 (22-30) mmol/L BUN 13 (7-17) mg/dL Creatinine 0.6 (0.6-1.2) mg/dL Glucose 125 H (65-100) mg/dL Calcium 8.2 L (8.4-10.2) mg/dL Adrenal panel 05/01/21 Range/Units 04:49 Sodium 139 (137-145) mmol/L Potassium 3.1 L (3.6-5.0) mmol/L Chloride 103.4 (98-107) mmol/L Carbon Dioxide 26 (22-30) mmol/L BUN 13 (7-17) mg/dL Creatinine 0.6 (0.6-1.2) mg/dL Glucose 125 H (65-100) mg/dL Calcium 8.2 L (8.4-10.2) mg/dL
[2021-05-01] MEDS ORDERED: POTASSIUM CHLORIDE 10 MEQ 10 MEQ/100 ML BAG IV SCH (14:00)
--- NOTE | 2021-05-01 14:36 | Progress Note ---
Assessment and Plan - Patient Problems (1) Small bowel obstruction Current Visit: Yes Status: Acute Plan to address problem: Patient on NG tube NG tube to low [place] suction Has not passed flatus We will discontinue the NG tube once she has flatus (2) Hypokalemia Current Visit: Yes Status: Acute Plan to address problem: Supplemented (3) DVT prophylaxis Current Visit: Yes Status: Acute Plan to address problem: On heparin and GI prophylaxis Subjective Date of service: 05/01/21 Principal diagnosis: Intestinal perforation and severe abdominal pain Interval history: 35-year-old -[place] female with no significant past medical history was brought to the hospital because of upper abdominal pain acid with nausea vomiting for the last 3 days. past surgical history includes 3 C-sections. She denies hematemesis/coffee-ground emesis, fever/chills/sweats, alcohol abuse, chest pain, shortness of breath, or cough. Patient rates her current pain as a 10/10 in severity and states it comes and goes. Pain worsens with oral intake. Vomiting only occurs with food and fluids. 05/01/2021 Patient has SBO NG tube in place Patient has not passed flatus Objective - Constitutional Vitals: Vital Signs - 12hr 05/01/21 05/01/21 05/01/21 03:42 07:14 14:29 Temperature 98.9 F 98.7 F 99.0 F Pulse Rate 88 85 85 Respiratory 16 18 18 Rate Blood Pressure 128/73 127/78 Blood Pressure 144/83 [Right] O2 Sat by Pulse 97 98 97 Oximetry General appearance: Present: mild distress, well-nourished - EENT Eyes: PERRL, EOM intact ENT: hearing intact, clear oral mucosa Ears: bilateral: normal - Neck Neck: supple, normal ROM - Respiratory Respiratory effort: normal Respiratory: bilateral: CTA - Breasts Breasts: normal - Cardiovascular Heart rate: 78 Rhythm: regular Heart Sounds: Present: S1 & S2. Absent: gallop, rub Extremities: pulses intact, pulses symmetrical, No edema, normal color, Full ROM - Gastrointestinal General gastrointestinal: Present: soft, non-tender, distended, normal bowel sounds, absent bowel sounds Rectal Exam: deferred - Genitourinary Female genitourinary: normal - Integumentary Integumentary: clear, warm, dry - Musculoskeletal Musculoskeletal: 1, strength equal bilaterally - Neurologic Neurologic: moves all extremities - Psychiatric Psychiatric: memory intact, appropriate mood/affect, intact judgment & insight - Labs CBC & Chem 7: 05/01/21 04:49 05/01/21 04:49 Labs: Abnormal lab results 05/01/21 05/01/21 Range/Units 04:49 04:49 RDW 13.1 L (13.2-15.2) % [place] % (Auto) 12.0 H (0.0-7.3) % Potassium 3.1 L (3.6-5.0) mmol/L Glucose 125 H (65-100) mg/dL Calcium 8.2 L (8.4-10.2) mg/dL Abdominal ultrasound Hepatic steatosis Questionable distention of the gastrointestinal tract recommend KUB for further evaluation CT of the abdomen and pelvis Abnormal intestinal gas pattern consistent with small bowel obstruction Significant amount of free fluid dependent portion of the pelvis
[2021-05-01] MEDS: FAMOTIDINE 20 MG/2 ML INJ IV SCH ×2 (15:16→21:26)
[2021-05-02] MEDS: HEPARIN 5,000 UNIT/1 ML VIAL SUB-Q SCH ×2 (04:59→14:27)
[2021-05-02] MEDS: FAMOTIDINE 20 MG/2 ML INJ IV SCH (09:35)
[2021-05-02 12:09] VITALS: BP 116/60
--- NOTE | 2021-05-02 13:34 | Progress Note ---
Assessment and Plan 35 yo F with SBO likely secondary to prior abdominal surgery (csection) Patient stable. Small bowel obstruction is clinically resolved. Plan: 1. Full liquids ->adv to soft diet and maintain for next 3-5 days 2. Ok to dc from surgery standpoint D/W . Thank you, please call with any questions or concerns. Evaluation and treatment of this patient was during the time of the national and state emergency arising from COVID19 coronavirus pandemic. Treatment and procedures performed meet the current and available best practice and guidelines for patient during the COVID pandemic. Subjective Date of service: 05/02/21 Narrative: Patient seen and examined. No nausea or vomiting. No fevers or chills. Tolerating a full liquid diet. Denies abdominal pain. Having flatus. Objective Vital Signs - 12hr 05/02/21 05/02/21 05/02/21 04:17 07:54 12:08 Temperature 98.4 F 98.3 F 98.0 F Pulse Rate 86 76 76 Respiratory 18 16 18 Rate Blood Pressure 115/74 116/49 Blood Pressure 116/60 [Right] O2 Sat by Pulse 100 100 98 Oximetry - General physical appearance Narrative Exam: Gen.: Awake, alert, oriented x3. No apparent distress ENT: Trachea midline. No lymphadenopathy. No scleral icterus or conjunctival pallor CV: S1, S2 present Respiratory: No audible wheezes Abdomen: Soft, nondistended, nontender. No rebound, rigidity, guarding Extremities: No clubbing, cyanosis, edema - Labs 05/01/21 04:49 05/01/21 04:49
--- NOTE | 2021-05-02 16:27 | Discharge Summary ---
Providers - Providers Date of Admission: 04/30/21 03:08 Date of discharge: 05/02/21 Attending physician: GURWINDER BOOTH 04/30/21 03:01 Consult to Physician [CONS] Stat Comment: ALONDRA Nguyen spoke with Dr. Craven @ [phone] Consulting Provider: LIAM CRAVEN Physician Instructions: NPO, Pain control; NG tube; Hospitalist admit; Reason For Exam: Small bowel obstruction Primary care physician: CATHEAD OPERATOR Hospitalization Condition: Stable Hospital course: Subjective Date of service: 05/01/21 Principal diagnosis: Intestinal perforation and severe abdominal pain Interval history: 35-year-old -[place] female with no significant past medical history was brought to the hospital because of upper abdominal pain acid with nausea vomiting for the last 3 days. past surgical history includes 3 C-sections. She denies hematemesis/coffee-ground emesis, fever/chills/sweats, alcohol abuse, chest pain, shortness of breath, or cough. Patient rates her current pain as a 10/10 in severity and states it comes and goes. Pain worsens with oral intake. Vomiting only occurs with food and fluids. 05/01/2021 Patient has SBO NG tube in place Patient has not passed flatus 05/02/2021 Patient has passed flatus NG tube taken out Clear liquid to be advanced as tolerated Patient to be discharged today Assessment and Plan - Patient Problems (1) Small bowel obstruction Current Visit: Yes Status: Acute Plan to address problem: Patient passed flatus NG tube to be discontinued Clear liquid diet (2) Hypokalemia Current Visit: Yes Status: Acute Plan to address problem: Supplemented (3) DVT prophylaxis Current Visit: Yes Status: Acute Plan to address problem: On heparin and GI prophylaxis Disposition: TO HOME OR SELFCARE Final Discharge Diagnosis (Prints w/discharge instructions): Small bowel obstruction. Hypokalemia Time spent for discharge: 30 minutes - Discharge Diagnoses (1) Small bowel obstruction Status: Acute (2) Hypokalemia Status: Acute (3) DVT prophylaxis Status: Acute Core Measure Documentation - Palliative Care Palliative Care/ Comfort Measures: Not Applicable - Core Measures Any of the following diagnoses?: none Exam - Constitutional Vitals: Temp Pulse Resp BP Pulse Ox 98.0 F 76 18 116/60 98 05/02/21 12:08 05/02/21 12:08 05/02/21 12:08 05/02/21 12:08 05/02/21 12:08 General appearance: Present: no acute distress, well-nourished - EENT Eyes: Present: PERRL ENT: hearing intact, clear oral mucosa - Neck Neck: Present: supple, normal ROM - Respiratory Respiratory effort: normal Respiratory: bilateral: CTA - Cardiovascular Heart rate: 78 Rhythm: regular Heart Sounds: Present: S1 & S2. Absent: rub, click - Extremities Extremities: pulses symmetrical, No edema Peripheral Pulses: within normal limits - Abdominal General gastrointestinal: Present: soft, non-tender, non-distended, normal bowel sounds Female genitourinary: Present: normal - Integumentary Integumentary: Present: clear, warm, dry - Musculoskeletal Musculoskeletal: gait normal, strength equal bilaterally - Psychiatric Psychiatric: appropriate mood/affect, intact judgment & insight - Neurologic Neurologic: CNII-XII intact, moves all extremities Plan Activity: no restrictions Diet: advance as tolerated Follow up with: [facility] [Provider Group] - 2-3 Days Forms: Work/School Release Form(ED)
== END 2021-05-02 05:55 | disposition home or self-care (01) | DRG 390 ==
LOC: ED 19:47 → 4A 04-30 03:08
PROVIDERS: ADMIT Hospitalist; ATTEND Internal Medicine
PROC: 0D9670Z Drainage of Stomach with Drainage Device, Via Natural or Artificial Opening (ICD-10-PCS; principal; 2021-04-30)
DX: K56.609 Unspecified intestinal obstruction, unspecified as to partial versus complete obstruction (principal); E87.6 Hypokalemia
CPT/HCPCS: 36415; 74018; 74022; 74177; 76705; 80048; 80053; 81001; 83690; 83735; 84703; 85025; 96361; 96374; 96375; G0378; J1644; J2270; J2405; J3480; J7030; Q0162; Q9967